=== PATIENT | female | born 1990 | race American Indian/Alaskan Native ===

== ENCOUNTER 2017-02-18 14:37 | Emergency (ER) | payer MEDICAID ==
[2017-02-18 15:25] VITALS: BP 108/73
[2017-02-18 16:31] LABS: Blood Urea Nitrogen 10 mg/dL (7-17); Calcium 8.4 mg/dL (8.4-10.2); Carbon Dioxide 21 mmol/L (22-30); Glucose 114 mg/dL (65-100)
[2017-02-18 16:32] LABS: Anion Gap 18 mmol/L; Sodium 133 mmol/L (137-145)
[2017-02-18 16:34] LABS: Basophils % (Auto) 0.1 % (0.0-1.8); Hematocrit 35.4 % (30.3-42.9); Hemoglobin 11.8 gm/dl (10.1-14.3); Mean Corpuscular HGB Conc 33 % (30-34); Mean Corpuscular Hemoglobin 31 pg (28-32); Mean Corpuscular Volume 94 fl (79-97); Platelet Count 165 K/mm3 (140-440); Red Blood Count 3.76 M/mm3 (3.65-5.03); Red Cell Distribution Width 11.8 % (13.2-15.2); White Blood Count 11.1 K/mm3 (4.5-11.0)
[2017-02-18 16:51] LABS: Bacteria,Urine 2+ /HPF (Negative); Bilirubin,Urine NEG (Negative); Blood,Urine MOD (Negative); Ketones,Urine TR mg/dL (Negative); Leukocyte Esterase,Urine LG (Negative); Mucus,Urine 3+ /HPF; Nitrite,Urine NEG (Negative); Renal Epithelial Cells,Urine 6 /LPF; Urobilinogen,Urine < 2.0 mg/dL (<2.0)
[2017-02-18 16:52] LABS: WBC,Urine > 182.0 /HPF (0.0-6.0)
[2017-02-18] MEDS ORDERED: ULTRAM PO ONE (21:33)
--- NOTE | 2017-02-18 21:39 | Emergency Department Report ---
ED General Adult HPI - General Chief complaint: Fever Stated complaint: N/V/D Time Seen by Provider: 02/18/17 21:07 Source: patient Mode of arrival: Ambulatory Limitations: No Limitations - History of Present Illness Initial comments: 26-year-old female presents to the emergency department complaining of generalized body aches for the past 3 days. Patient reports associated nausea, vomiting, and occasional diarrhea. Patient denies fever. She does report mild dysuria. There are no other complaints. -: Gradual, days(s) (3) Severity scale (0 -10): 3 Quality: aching Consistency: constant Improves with: none Worsens with: none Associated Symptoms: malaise, nausea/vomiting Treatments Prior to Arrival: none - Related Data Previous Rx's Medication Instructions Recorded Last Taken Type Ibuprofen [Motrin 800 MG tab] 800 mg PO Q8HR PRN #30 tablet 01/13/17 Unknown Rx Nitrofurantoin [place]/M-Cryst 100 mg PO Q12HR #14 capsule 02/18/17 Unknown Rx [Macrobid CAP] oxyCODONE /ACETAMINOPHEN [Percocet 1 tab PO Q6HR #20 tab 02/18/17 Unknown Rx 5/325] Allergies Allergy/AdvReac Type Severity Reaction Status Date / Time No Known Allergies Allergy Verified 12/11/15 17:30 ED Review of Systems ROS: Stated complaint: N/V/D Other details as noted in HPI Comment: All other systems reviewed and negative Constitutional: malaise Gastrointestinal: nausea, vomiting, diarrhea Genitourinary: dysuria Musculoskeletal: myalgia ED Past Medical Hx - Past Medical History Previous Medical History?: No Hx Hypertension: No Hx Congestive Heart Failure: No Hx Diabetes: No Hx Deep Vein Thrombosis: No Hx Renal Disease: No Hx Sickle Cell Disease: No Hx Seizures: No Hx Asthma: No Hx COPD: No Hx HIV: No - Surgical History Past Surgical History?: Yes Additional Surgical History: - Family History Family history: no significant - Social History Smoking Status: Never Smoker Substance Use Type: None - Medications Home Medications: Home Medications Medication Instructions Recorded Confirmed Last Taken Type Ibuprofen [Motrin 800 MG tab] 800 mg PO Q8HR PRN #30 tablet 01/13/17 Unknown Rx Nitrofurantoin [place]/M-Cryst 100 mg PO Q12HR #14 capsule 02/18/17 Unknown Rx [Macrobid CAP] oxyCODONE /ACETAMINOPHEN [Percocet 1 tab PO Q6HR #20 tab 02/18/17 Unknown Rx 5/325] ED Physical Exam - General Limitations: No Limitations General appearance: alert, in no apparent distress - Head Head exam: Present: atraumatic, normocephalic - Eye Eye exam: Present: normal appearance, PERRL, EOMI - ENT ENT exam: Present: normal exam, normal orophraynx, mucous membranes moist - Neck Neck exam: Present: normal inspection, full ROM. Absent: tenderness - Respiratory Respiratory exam: Present: normal lung sounds bilaterally. Absent: respiratory distress - Cardiovascular Cardiovascular Exam: Present: regular rate, normal rhythm, normal heart sounds - GI/Abdominal GI/Abdominal exam: Present: soft, normal bowel sounds. Absent: distended, tenderness - Extremities Exam Extremities exam: Present: normal inspection, full ROM. Absent: tenderness - Back Exam Back exam: Present: normal inspection, full ROM. Absent: tenderness - Neurological Exam Neurological exam: Present: alert, oriented X3. Absent: motor sensory deficit - Skin Skin exam: Present: warm, dry, intact ED Course Vital Signs 02/18/17 15:22 Temperature 99.6 F Pulse Rate 106 H Respiratory 16 Rate Blood Pressure 108/73 O2 Sat by Pulse 100 Oximetry ED Medical Decision Making - Lab Data Result diagrams: 02/18/17 15:35 02/18/17 15:35 - Medical Decision Making Laboratory results reviewed and discussed with the patient. Patient will be discharged home at this time on oral antibiotic to follow up with her primary care physician. - Differential Diagnosis viral syndrome, dehydration, UTI, gastroenteritis Critical care attestation.: If time is entered above; I have spent that time in minutes in the direct care of this critically ill patient, excluding procedure time. ED Disposition Clinical Impression: UTI (urinary tract infection) Qualifiers: Urinary tract infection type: acute cystitis Hematuria presence: without hematuria Qualified Code(s): N30.00 - Acute cystitis without hematuria Disposition: DISCHARGED TO HOME OR SELFCARE Is pt being admited?: No Condition: Stable Instructions: Urinary Tract Infection in Women (ED) Prescriptions: Nitrofurantoin [place]/M-Cryst [Macrobid CAP] 100 mg PO Q12HR #14 capsule oxyCODONE /ACETAMINOPHEN [Percocet 5/325] 1 tab PO Q6HR #20 tab Referrals: PRIMARY CARE, [Primary Care Provider] - 3-5 Days Time of Disposition: 21:40
== END 2017-02-18 22:04 | disposition home or self-care (01) ==
LOC: ED 14:37
DX: N30.00 Acute cystitis without hematuria (principal)
CPT/HCPCS: 36415; 80048; 81001; 81025; 85025; 99283

== ENCOUNTER 2021-06-17 03:20 | Emergency (ER) | payer SELFPAY ==
[2021-06-17 03:58] VITALS: BP 115/63
[2021-06-17 04:42] LABS: Basophils % (Auto) 0.5 % (0.0-1.8); Eosinophils # (Auto) 0.2 K/mm3 (0.0-0.4); Eosinophils % (Auto) 4.2 % (0.0-4.3); Hematocrit 36.6 % (30.3-42.9); Hemoglobin 12.9 gm/dl (10.1-14.3); Lymphocytes # (Auto) 1.5 K/mm3 (1.2-5.4); Lymphocytes % (Auto) 35.8 % (13.4-35.0); Mean Corpuscular HGB Conc 35 % (30-34); Mean Corpuscular Volume 99 fl (79-97); Monocytes # (Auto) 0.5 K/mm3 (0.0-0.8); Monocytes % (Auto) 12.7 % (0.0-7.3); Platelet Count 198 K/mm3 (140-440); Red Cell Distribution Width 12.6 % (13.2-15.2)
[2021-06-17 04:57] LABS: BUN/Creatinine Ratio 16; Blood Urea Nitrogen 13 mg/dL (7-17); Calcium 8.8 mg/dL (8.4-10.2); Hemolysis Index 4
--- NOTE | 2021-06-17 05:47 | Emergency Department Report ---
ED Female HPI - General Chief complaint: Vaginal Bleeding Stated complaint: 4 MONTHS PREG AND BLEEDING Source: patient Mode of arrival: Ambulatory Limitations: No Limitations - History of Present Illness Initial comments: 30-year-old male female presents emerge department complaining of a 8 to 9-week history of vaginal bleeding going through about 2-3 pads per day without re solution. Reports no trauma reports no fever, chills, sweats. No nausea, no vomiting no hemoptysis, no hematemesis no hematochezia no easy bruising. MD Complaint: vaginal bleeding -: Gradual Location: suprapubic Radiation: non-radiating Severity: mild Consistency: constant Improves with: none Are you Now?: No Associated Symptoms: vaginal bleeding - Related Data Sexually active: Yes Previous Rx's Medication Instructions Recorded Last Taken Type Ibuprofen [Motrin 800 MG tab] 800 mg PO Q8HR PRN #30 tablet 01/13/17 Unknown Rx Nitrofurantoin [place]/M-Cryst 100 mg PO Q12HR #14 capsule 02/18/17 Unknown Rx [Macrobid CAP] oxyCODONE /ACETAMINOPHEN [Percocet 1 tab PO Q6HR #20 tab 02/18/17 Unknown Rx 5/325] medroxyPROGESTERone ACETATE 5 mg PO QDAY #7 tablet 06/17/21 Unknown Rx [Provera] Allergies Allergy/AdvReac Type Severity Reaction Status Date / Time No Known Allergies Allergy Verified 06/17/21 03:58 ED Review of Systems ROS: Stated complaint: 4 MONTHS PREG AND BLEEDING Other details as noted in HPI Comment: All other systems reviewed and negative ED Past Medical Hx - Past Medical History Previous Medical History?: No Hx Hypertension: No Hx Congestive Heart Failure: No Hx Diabetes: No Hx Deep Vein Thrombosis: No Hx Renal Disease: No Hx Sickle Cell Disease: No Hx Seizures: No Hx Asthma: No Hx COPD: No Hx HIV: No - Surgical History Past Surgical History?: Yes Additional Surgical History: x 5 - Social History Smoking Status: Never Smoker - Medications Home Medications: Home Medications Medication Instructions Recorded Confirmed Last Taken Type Ibuprofen [Motrin 800 MG tab] 800 mg PO Q8HR PRN #30 tablet 01/13/17 Unknown Rx Nitrofurantoin [place]/M-Cryst 100 mg PO Q12HR #14 capsule 02/18/17 Unknown Rx [Macrobid CAP] oxyCODONE /ACETAMINOPHEN [Percocet 1 tab PO Q6HR #20 tab 02/18/17 Unknown Rx 5/325] medroxyPROGESTERone ACETATE 5 mg PO QDAY #7 tablet 06/17/21 Unknown Rx [Provera] ED Physical Exam - General Limitations: No Limitations General appearance: alert, in no apparent distress - Head Head exam: Present: atraumatic, normocephalic - Eye Eye exam: Present: normal appearance - ENT ENT exam: Present: mucous membranes moist - Neck Neck exam: Present: normal inspection - Respiratory Respiratory exam: Present: normal lung sounds bilaterally. Absent: respiratory distress - Cardiovascular Cardiovascular Exam: Present: regular rate, normal rhythm. Absent: systolic murmur, diastolic murmur, rubs, gallop - GI/Abdominal GI/Abdominal exam: Present: soft, normal bowel sounds - Extremities Exam Extremities exam: Present: normal inspection - Back Exam Back exam: Present: normal inspection - Neurological Exam Neurological exam: Present: alert, oriented X3 - Psychiatric Psychiatric exam: Present: normal affect, normal mood - Skin Skin exam: Present: warm, dry, intact, normal color. Absent: rash ED Course Vital Signs 06/17/21 03:55 Temperature 98.2 F Pulse Rate 70 Respiratory 18 Rate Blood Pressure 115/63 [Left] O2 Sat by Pulse 99 Oximetry ED Medical Decision Making - Lab Data Result diagrams: 06/17/21 04:24 06/17/21 04:24 Lab Results 06/17/21 06/17/21 06/17/21 Range/Units 04:24 04:24 Unknown WBC 4.3 L (4.5-11.0) K/mm3 RBC 3.70 (3.65-5.03) M/mm3 Hgb 12.9 (10.1-14.3) gm/dl Hct 36.6 (30.3-42.9) % MCV 99 H (79-97) fl MCH 35 H (28-32) pg MCHC 35 H (30-34) % RDW 12.6 L (13.2-15.2) % Plt Count 198 (140-440) K/mm3 Lymph % (Auto) 35.8 H (13.4-35.0) % [place] % (Auto) 12.7 H (0.0-7.3) % Eos % (Auto) 4.2 (0.0-4.3) % Baso % (Auto) 0.5 (0.0-1.8) % Lymph # (Auto) 1.5 (1.2-5.4) K/mm3 [place] # (Auto) 0.5 (0.0-0.8) K/mm3 Eos # (Auto) 0.2 (0.0-0.4) K/mm3 Baso # (Auto) 0.0 (0.0-0.1) K/mm3 Seg Neutrophils % 46.8 (40.0-70.0) % Seg Neutrophils # 2.0 (1.8-7.7) K/mm3 Sodium 139 (137-145) mmol/L Potassium 3.7 (3.6-5.0) mmol/L Chloride 105.2 (98-107) mmol/L Carbon Dioxide 25 (22-30) mmol/L Anion Gap 13 mmol/L BUN 13 (7-17) mg/dL Creatinine 0.8 (0.6-1.2) mg/dL Estimated GFR > 60 ml/min BUN/Creatinine Ratio 16 % Glucose 71 (65-100) mg/dL Calcium 8.8 (8.4-10.2) mg/dL HCG, Quant < 2 (0-4) mIU/mL - Radiology Data Radiology results: report reviewed - Medical Decision Making Female presents emergency department with over 60 days of episodic vaginal bleeding most likely of a nonemergent etiology. Based on the history, examination, the ED work-up patient's presentation not consistent with an ectopic , molar , life threatening coagulopathy, serious bacterial infection, central process or other emergency. Patient's bleeding is most likely secondary to, fibroids, or the nonemergent cause of abnormal uterine bleeding. No vaginal tears were appreciated on examination Disposition: We will discharge home with return precautions and instructions for prompt [facility] follow-up Critical care attestation.: If time is entered above; I have spent that time in minutes in the direct care of this critically ill patient, excluding procedure time. ED Disposition Clinical Impression: Negative test, Dysfunctional uterine bleeding Disposition: HOME / SELF CARE / HOMELESS Is pt being admited?: No Does the pt Need Aspirin: No Condition: Stable Instructions: Abnormal Uterine Bleeding, Dysfunctional Uterine Bleeding Prescriptions: medroxyPROGESTERone ACETATE [Provera] 5 mg PO QDAY #7 tablet Referrals: PRIMARY CARE, [Referring] - 3-5 Days (Keep the appointment you have scheduled with your [facility] on )
--- NOTE | 2021-06-17 05:51 | Ultrasound Report ---
ULTRASOUND OBSTETRIC Indication: vag bleed 30-year-old female with reported Findings: No intrauterine identified Neither ovary was well identified from overlying bowel gas. The uterus measured about 8 x 5 x 6 cm with endometrial thickness of 5 mm. Impression: No intrauterine identified, as above Signer Name: Donta Mccarty MD Signed: 06/17/2021 5:47 AM Workstation Name: [id number]
== END 2021-06-17 06:42 | disposition home or self-care (01) ==
LOC: ED 03:20
DX: N93.9 Abnormal uterine and vaginal bleeding, unspecified (principal); Z79.899 Other long term (current) drug therapy
CPT/HCPCS: 36415; 76801; 76817; 80048; 84702; 85025; 99284